=== PATIENT | male | born 1950 | race Caucasian/White ===

== ENCOUNTER → 2020-09-15 | Outpatient (CLI) | payer MEDICARE, OTHER | LOC: EXRD 14:04 | DX: H20.9 Unspecified iridocyclitis (principal); L98.9 Disorder of the skin and subcutaneous tissue, unspecified | CPT/HCPCS: 71046 ==

== ENCOUNTER → 2020-09-27 | Outpatient (CLI) | payer MEDICARE, OTHER | LOC: LAB 10:31 | DX: R76.8 Other specified abnormal immunological findings in serum (principal); Z11.59 Encounter for screening for other viral diseases; H20.9 Unspecified iridocyclitis | CPT/HCPCS: 36415 ==

== ENCOUNTER → 2020-09-30 | Outpatient (CLI) | payer MEDICARE, OTHER ==
[2020-10-01 08:14] LABS: HBSAG SCREEN Negative (Negative); HEP B CORE AB, TOT Negative (Negative)
[2020-10-01 09:14] LABS: HCV AB <0.1 (0.0-0.9)
[2020-10-03 15:10] LABS: ANTIMYELOPEROXIDASE (MPO) ABS <9.0 U/mL (0.0-9.0); ANTIPROTEINASE 3 (PR-3) ABS <3.5 U/mL (0.0-3.5); ATYPICAL PANCA <1:20 titer (Neg:<1:20); CYTOPLASMIC (C-ANCA) <1:20 titer (Neg:<1:20); PERINUCLEAR (P-ANCA) <1:20 titer (Neg:<1:20)
== END ==
LOC: LAB 11:16
PROVIDERS: Internal Medicine
DX: H20.9 Unspecified iridocyclitis (principal); R76.8 Other specified abnormal immunological findings in serum; Z11.59 Encounter for screening for other viral diseases
CPT/HCPCS: 83520; 86256; 86704; 86803; 87340